=== PATIENT | male | born 1950 | race Caucasian/White ===

== ENCOUNTER → 2022-01-31 00:55 | Outpatient (CLI) | payer MEDICARE, BC, SELFPAY ==
--- NOTE | 2022-01-31 08:30 | DI.NM_ITS ---
Exam(s) NM HEPATOBILIARY CCK GRP EXAM: NM HEPATOBILIARY CCK GRP CLINICAL HISTORY: ABD PAIN. TECHNIQUE: Injected dose: 5 mCi Tc-99 mebrofenin Initial dynamic images: 60 minutes Post-Gallbladder fillin.02 mcg/kg CCK intravenously over a 15min infusion. Addition images: 20 minute dynamic during CCK administration. COMPARISON: No exams were available for comparison FINDINGS: There is normal uptake and excretion of radiopharmaceutical by the liver and there is activity seen w ithin the gallbladder lumen starting at 8 minutes post injection. CBD is not dilated. Radiopharmace utical passes into the left upper quadrant jejunal loops beyond the ligament Treitz. In response to CCK infusion there is a normal 92 percent ejection fraction demonstrated by the gallbl adder. IMPRESSION: 1. Negative study. No evidence of obstruction of the cystic duct and no evidence of gallbladder dysf unction.
[2022-01-31] MEDS: Sincalide 5 MCG VIAL 2 MCG IJ (11:42)
== END ==
PROVIDERS: Visit Provider Internal Medicine
DX: R10.9 Unspecified abdominal pain (principal)
CPT/HCPCS: 78227